=== PATIENT | female | born 1965 | race Caucasian/White ===

== ENCOUNTER 2021-01-25 04:18 | Emergency (ER) | payer OTHER, SELFPAY ==
[~2021-01-25] VITALS: Ht 157.5 cm; Wt 47.6 kg
[2021-01-25 04:30] VITALS: BP_SYST 107
--- NOTE | 2021-01-25 04:37 | NUR ---
Placed in room 7 . Placed on telemetry monitor, blood pressure machine and pulse oximeter. To gown for exam. Side rails up. Report given to [place] SLAUGHTER.
--- NOTE | 2021-01-25 04:38 | NUR ---
Came in ER ambulatory from home this 55 year old female, AAOX4, breathing spontaneously at room air, not in distress noted. With chief complaints of on and off chest pain 2-3 days, No known medical history, s/p umbilical hernia repair, allergy to aspirin, tetracycline, vital signs stable
--- NOTE | 2021-01-25 05:21 | NUR ---
DR. CARLISLE AT BEDSIDE FOR EVALUATION.
--- NOTE | 2021-01-25 05:22 | NUR ---
ER at bedside examining patient.
--- NOTE | 2021-01-25 06:03 | NUR ---
Chest xray done at bedside
--- NOTE | 2021-01-25 06:15 | NUR ---
# 20 gauge angiocath placed to left ac. Use of asceptic technique. Opsite placed over site. Blood return noted. Blood for lab drawn from site. Flushed with 10 cc of normal saline. No evidence of infiltration noted. Patient tolerated well.
[2021-01-25 06:44] LABS: BASOPHILS # (AUTO) 0.1 K/uL (0.0-0.2); BASOPHILS % (AUTO) 0.6 % (0.0-2.0); EOSINOPHILS # (AUTO) 0.2 K/uL (0.0-0.4); EOSINOPHILS % (AUTO) 2.7 % (0.0-4.0); HEMOGLOBIN 10.7 g/dL (12.0-16.0); LYMPHOCYTES # (AUTO) 3.6 K/uL (1.0-5.5); LYMPHOCYTES % (AUTO) 45.6 % (20.5-51.5); MEAN CORPUSCULAR HEMOGLOBIN 32 pg (27-31); MEAN CORPUSCULAR HGB CONC 35 % (32-36); MEAN CORPUSCULAR VOLUME 93 fL (79.0-98.0); MONOCYTES # (AUTO) 0.5 K/uL (0.0-1.0); NEUTROPHILS # (AUTO) 3.6 K/uL (1.8-7.7); NEUTROPHILS % (AUTO) 45.1 % (40.0-70.0); PLATELET COUNT (AUTO) 249 K/uL (130-430); RED BLOOD CELL COUNT(AUTO) 3.34 MIL/uL (4.2-6.2); RED CELL DISTRIBUTION WIDTH 13.7 % (9.0-15.0); WHITE BLOOD COUNT (AUTO) 7.9 K/uL (4.8-10.8)
[2021-01-25 07:04] LABS: ANION GAP 5 (5-15); CALCIUM 8.6 mg/dL (8.4-11.0); CHLORIDE 107 mmol/L (98-107); CREATININE 0.72 mg/dL (0.55-1.30); GLUCOSE 99 mg/dL (70-99); POTASSIUM 3.5 mmol/L (3.5-5.1); SODIUM SERUM 141 mmol/L (136-145); UREA NITROGEN, BLOOD 14 mg/dL (8-21)
[2021-01-25 07:17] LABS: ALANINE AMINOTRANSFERASE 23 U/L (12-78); ALBUMIN 3.4 g/dL (3.4-4.8); ASPARTATE AMINOTRANSFERASE 14 U/L (10-37); TOTAL BILIRUBIN 0.2 mg/dL (0.0-1.0)
--- NOTE | 2021-01-25 07:18 | NUR ---
Endorsed to day shift SUKHJINDER Bey for continuity of care
[2021-01-25 07:19] LABS: GFR AFRICAN AMERICAN 107 mL/min (>90)
--- NOTE | 2021-01-25 07:20 | NUR ---
Assumed care of patient, report received from nydia Farr currently resting in bed, no acute distress noted.
[2021-01-25 10:30] VITALS: BP_SYST 114
--- NOTE | 2021-01-25 10:30 | NUR ---
Patient given written and verbal discharge instructions and verbalizes understanding. ER MD discussed with patient the results and treatment provided. Patient in stable condition. ID arm band removed. No prescription given. Patient educated on pain management and to follow up with PMD. Pain Scale 0. Opportunity for questions provided and answered. Medication side effect fact sheet provided.
== END 2021-01-25 10:30 | disposition home or self-care (01) ==
LOC: SED 04:18
DX: R07.9 Chest pain, unspecified (principal); R00.2 Palpitations; J45.909 Unspecified asthma, uncomplicated; Z88.6 Allergy status to analgesic agent; Z88.1 Allergy status to other antibiotic agents
CPT/HCPCS: 36415; 71045; 80053; 84484; 85025; 93005; 99285